=== PATIENT | male | born 1955 | race Two or more races ===

== ENCOUNTER → 2017-10-06 | Outpatient (CLI) | payer BC ==
--- NOTE | 2017-10-06 13:30 | Diagnostic Imaging Report ---
PROCEDURE:HIP LEFT 2-3 VW (+/- PELVIS) COMPARISON:None. INDICATIONS:LEFT HIP PAIN FINDINGS: BONES:There are moderate degenerative changes of the hip with joint space narrowing, subchondral sclerosis, and osteophytes of the acetabulum and femoral head. There is no evidence of fracture or dislocation. Visualized pubic rami are intact. SOFT TISSUES:Negative. OTHER:Negative. CONCLUSION: Moderate degenerative changes of the left hip. Dictated by: Puneet Self M.D. on 10/06/2017 at 13:40 Electronically approved by: Puneet Self M.D. on 10/06/2017 at 13:40
== END ==
LOC: RAD 12:32
DX: M25.552 Pain in left hip (principal); M79.662 Pain in left lower leg
CPT/HCPCS: 93971

== ENCOUNTER 2018-09-15 12:07 | Observation (INO) | payer BC ==
[~2018-09-15] VITALS: Ht 172.7 cm; Wt 128.6 kg
--- OUTSIDE RECORDS SUMMARY | 2018-09-15 12:09 | XMS REPORT ---
Author Author [facility] Address Unknown Phone Unavailable Care Team Providers Care Title Clerk Automobile Name Role Phone SABRINA CLEMENTE Unavailable Unavailable Problems This patient has no known problems. Allergies, Adverse Reactions, Alerts This patient has no known allergies or adverse reactions. Medications This patient has no known medications. Results Test Description Test Time Test Comments Text Results Atomic Results Result Comments HIP LEFT 2-3 VW (+/- PELVIS) [place] [address] Patient Name: VIRIDIANA MONTES MR #: [id number] : 1955 Age/Sex: 62/M Req #: [id number] [facility] Physician: Ordered by: SABRINA CLEMENTE MD Report #: [id number] Location: [facility] Room/Bed: Procedure: [id number] DX/HIP LEFT 2-3 VW (+/- PELVIS) Exam Date: Exam Time: REPORT STATUS: Signed PROCEDURE: HIP LEFT 2-3 VW (+/- PELVIS) COMPARISON: None. INDICATIONS: LEFT HIP PAIN FINDINGS: BONES: There are moderate degenerative changes of the hip with joint space narrowing, subchondral sclerosis, and osteophytes of the acetabulum and femoral head. There is no evidence of fracture or dislocation. Visualized pubic rami are intact. SOFT TISSUES: Negative. OTHER: Negative. CONCLUSION: Moderate degenerative changes of the left hip. Dictated by: Merlene Self M.D. on 10/06/2017 at 13:40 Electronically approved by: Merlene Self M.D. on 10/06/2017 at 13:40 Dictated By: MERLENE SELF MD [id number] Transcribed By: YASMEEN on 10/06/17 1340 COPY TO: SABRINA CLEMENTE MD
[2018-09-15] MEDS ORDERED: ASPIRIN 81 MG CHEW TAB PO ONE (12:45)
[2018-09-15 13:14] LABS: BASOPHILS % 0.4 % (0.0-1.0); EOSINOPHILS # (AUTO) 0.1 (0.0-0.4); EOSINOPHILS % 0.8 % (0.0-6.0); HEMATOCRIT 50.2 % (38.2-49.6); HEMOGLOBIN 16.7 g/dL (14.0-18.0); LYMPHOCYTES # (AUTO) 0.9 (1.0-3.2); LYMPHOCYTES % 8.6 % (18.0-39.1); MEAN CORPUSCULAR HEMOGLOBIN 31.1 pg (28-32); MEAN CORPUSCULAR HGB CONC 33.3 g/dL (31-35); MEAN CORPUSCULAR VOLUME 93.5 fL (81-99); MONOCYTES # (AUTO) 0.7 (0.2-0.8); MONOCYTES % 6.8 % (4.4-11.3); NEUTROPHILS # (AUTO) 8.3 (2.1-6.9); PLATELET COUNT 244 x10e3/uL (140-360); RED BLOOD COUNT 5.37 x10e6/uL (4.3-5.7); RED CELL DISTRIBUTION WIDTH 12.3 % (11.7-14.4)
[2018-09-15 13:16] LABS: INR 0.89; PROTHROMBIN TIME 12.9 seconds (11.9-14.5)
[2018-09-15 13:17] LABS: PARTIAL THROMBOPLASTIN TIME 28.9 seconds (23.8-35.5)
[2018-09-15 13:28] LABS: ALANINE AMINOTRANSFERASE 39 IU/L (0-55); ALBUMIN/GLOBULIN RATIO 1.3 (0.8-2.0); ALKALINE PHOSPHATASE 71 IU/L (40-150); ANION GAP 14.3 mmol/L (8-16); BLOOD UREA NITROGEN 20 mg/dL (7-26); BUN/CREATININE RATIO 18 (6-25); CALCIUM 9.7 mg/dL (8.4-10.2); CARBON DIOXIDE 26 mmol/L (22-29); CHLORIDE 100 mmol/L (98-107); CREATINE KINASE 563 IU/L (30-200); EST GLOMERULAR FILTRATION RATE > 60 ML/MIN (60-); GLUCOSE 100 mg/dL (74-118); POTASSIUM 4.3 mmol/L (3.5-5.1); SODIUM 136 mmol/L (136-145)
--- NOTE | 2018-09-15 14:59 | Diagnostic Imaging Report ---
EXAMINATION: CHEST 2 VIEWS INDICATION: Chest pain. COMPARISON: None FINDINGS: Limited lateral radiograph secondary to motion. TUBES and LINES: None. LUNGS: Lungs are well inflated. Lungs are clear. There is no evidence of pneumonia or pulmonary edema. PLEURA: No pleural effusion or pneumothorax. HEART AND MEDIASTINUM: Enlarged cardiomediastinal silhouette. BONES AND SOFT TISSUES: No acute osseous lesion. Soft tissues are unremarkable. UPPER ABDOMEN: No free air under the diaphragm. IMPRESSION: Enlarged cardiomediastinal silhouette which could reflect cardiomegaly or prominent pericardial fat. No evidence of pulmonary edema. Signed by: Dr. Magdaleno Wu MD on 09/15/2018 2:55 PM
[2018-09-15] MEDS ORDERED: ENOXAPARIN SODIUM INJ 100 MG/ML SYR SC SCH (15:30)
[2018-09-15] MEDS ORDERED: ONDANSETRON HCL INJ 2MG/ML 2ML 2 MG/ML VIAL IV PRN (15:45)
[2018-09-15] MEDS ORDERED: SODIUM CHLORIDE FLUSH 10 ML SYR INJ PRN (15:45)
[2018-09-15] MEDS: ENOXAPARIN SODIUM INJ 100 MG/ML SYR SC SCH (15:58)
[2018-09-15] MEDS: FAMOTIDINE 20 MG TAB PO SCH (15:58)
[2018-09-15] MEDS: SODIUM CHLORIDE 0.9% 1000ML 1,000 ML IV SCH (15:58)
[2018-09-15] MEDS ORDERED: TAMSULOSIN HCL0.4 MG (16:19)
[2018-09-15] MEDS ORDERED: LOSARTAN POTASS50 MG (16:19)
[2018-09-15] MEDS ORDERED: BYSTOLIC10 MG (16:19)
[2018-09-15] MEDS ORDERED: VIAGRA100 MG (16:19)
[2018-09-15] MEDS ORDERED: NON-FORMULARY MEDICATION (Losartan Potassium 50 MG) SCH (17:00)
[2018-09-15] MEDS ORDERED: LOSARTAN POTASSIUM 25 MG TAB PO SCH (17:00)
[2018-09-15] MEDS: NITROGLYCERIN 2% OINT 1 GM PKT TOP SCH (17:46)
[2018-09-15 17:56] VITALS: BP 152/84
[2018-09-15 17:57] VITALS: BP 152/84
[2018-09-15 18:07] VITALS: BP 152/84
--- NOTE | 2018-09-15 18:16 | NUR ---
Received patient from ER and initial assessment complete. Patient A/O X3, no signs of distress at this time. Respirations even on room air. No complaint of chest pain at this time. Last BM this morning, bowel sounds present. Left AC 20 gauge IV with NS @ 100MLS/HR. BLE edema 1+ non-pitting. Patient is ambulatory. Tele #15 running A-fib at this time. Call light in reach, wheels locked, bed in lowest position, side rails up x2, will continue to monitor.
[2018-09-15 20:00] VITALS: BP 138/75
[2018-09-15 20:06] VITALS: BP 138/75
[2018-09-15 20:43] LABS: CREATINE KINASE MB 1.6 ng/mL (0-5.0)
[2018-09-16] VITALS (7 sets, daily range): BP systolic 106–132; BP diastolic 57–77
[2018-09-16] MEDS: NITROGLYCERIN 2% OINT 1 GM PKT TOP SCH ×4 (00:34→17:30)
[2018-09-16] MEDS: SODIUM CHLORIDE 0.9% 1000ML 1,000 ML IV SCH ×3 (02:59→21:56)
[2018-09-16 04:55] LABS: BASOPHILS % 0.5 % (0.0-1.0); EOSINOPHILS # (AUTO) 0.2 (0.0-0.4); EOSINOPHILS % 2.2 % (0.0-6.0); HEMOGLOBIN 15.3 g/dL (14.0-18.0); LYMPHOCYTES # (AUTO) 1.1 (1.0-3.2); LYMPHOCYTES % 14.5 % (18.0-39.1); MEAN CORPUSCULAR HEMOGLOBIN 31.5 pg (28-32); MEAN CORPUSCULAR VOLUME 92.6 fL (81-99); MONOCYTES # (AUTO) 0.7 (0.2-0.8); MONOCYTES % 8.9 % (4.4-11.3); NEUTROPHILS # (AUTO) 5.6 (2.1-6.9); NEUTROPHILS % 73.5 % (38.7-80.0); PLATELET COUNT 203 x10e3/uL (140-360); RED BLOOD COUNT 4.86 x10e6/uL (4.3-5.7); RED CELL DISTRIBUTION WIDTH 12.2 % (11.7-14.4)
[2018-09-16 05:15] LABS: ANION GAP 11.9 mmol/L (8-16); BLOOD UREA NITROGEN 19 mg/dL (7-26); BUN/CREATININE RATIO 18 (6-25); CALCIUM 8.6 mg/dL (8.4-10.2); CARBON DIOXIDE 22 mmol/L (22-29); CHLORIDE 105 mmol/L (98-107); CHOL/HDL RATIO 3.5 (3.9-4.7); CHOLESTEROL 142 MD/DL (0-199); CREATININE, SERUM 1.07 mg/dL (0.72-1.25); EST GLOMERULAR FILTRATION RATE > 60 ML/MIN (60-); GLUCOSE 96 mg/dL (74-118); HDL CHOLESTEROL 41 MG/DL (40-60); LDL CHOLESTEROL 82 MG/DL (60-130); POTASSIUM 3.9 mmol/L (3.5-5.1); SODIUM 135 mmol/L (136-145); TRIGLYCERIDES 96 MG/DL (0-149)
[2018-09-16 05:48] LABS: CREATINE KINASE MB 1.1 ng/mL (0-5.0)
[2018-09-16] MEDS: ENOXAPARIN SODIUM INJ 100 MG/ML SYR SC SCH (06:40)
[2018-09-16] MEDS: FAMOTIDINE 20 MG TAB PO SCH ×2 (08:30→17:30)
[2018-09-16] MEDS: TAMSULOSIN HCL 0.4 MG CAP PO SCH (10:00)
[2018-09-16] MEDS: LOSARTAN POTASSIUM 25 MG TAB PO SCH ×2 (10:00→20:05)
[2018-09-16] MEDS: NEBIVOLOL 10 MG TAB PO SCH (10:00)
--- NOTE | 2018-09-16 14:31 | NUR ---
CASE MANAGEMENT INITIAL ASSESSMENT Aircraft Pneudraulics Repairer to bedside to discuss plan of care with patient/family. CM/SW role and care transitions discussed. Anticipated discharge plan discussed along with duration of care. CM discussed patients right to make decisions in care. CM/SW work hours given. Patient lives: PATIENT LIVES IN [address] HOME [place] [address] Admit/Transfer: ED POA/Emergency contact: SILVIO MONTES [phone] Current/Previous Home Health: NONE PCP/Follow-up Care: DR. SABRINA CLEMENTE Current/Previous DME: NONE AT THIS TIME Other Services: NONE Employment Status: EMPLOYED Areas of Concerns: NONE AT THIS TIME Referral Needs: NONE Education Needs: NONE IMM/WEBER given and signed (if applicable): N/A Goal for discharge: DISCHARGE HOME INDEPENDENT WITH NO NEEDS CM left business card at the bedside with contact information. Name and number was also written on the patients whiteboard. Patient verbalized understanding of discussion. CM will follow-up with ongoing discharge and transition of care needs.
[2018-09-16] MEDS: RIVAROXABAN 20 MG TABLET PO SCH (17:30)
--- NOTE | 2018-09-16 17:31 | NUR ---
TYRONE HANDOUT REVIEWED AND GIVEN TO PT, XALRELTO HANDOUT REVIEWED AND GIVEN TO PT, PT AWARE OF NPO STATUS AFTER MIDNIGHT,
--- NOTE | 2018-09-16 19:14 | NUR ---
WALKING ROUNDS PERFORMED, RECEIVED PT LAYING SEMI FOWLERS IN BED, AAOX3, RR EVEN AND NON-LABORED, ON RA. NO S/SX OF DISTRESS NOTED. LEFT PT LAYING SEMI FOWLERS IN BED, BED IN LOW LOCKED POSITION, SIDE RAILS UPX2, CALL LIGHT AND PHONE WITHIN REACH.
[2018-09-16] MEDS: ACETAMINOPHEN 325 MG TAB PO PRN (20:05)
[2018-09-17] VITALS (19 sets, daily range): BP systolic 107–165; BP diastolic 59–100
[2018-09-17] MEDS: NITROGLYCERIN 2% OINT 1 GM PKT TOP SCH ×4 (01:05→18:20)
[2018-09-17] MEDS: ACETAMINOPHEN 325 MG TAB PO PRN ×2 (01:09→20:22)
--- NOTE | 2018-09-17 02:31 | Consultation ---
DATE OF CONSULTATION: September 16, 2018 CARDIOLOGY CONSULT NOTE REASON FOR CONSULT: AFib with RVR. CHIEF COMPLAINT: Palpitations, weakness, and shortness of breath. HPI: Patient is a 63-year-old man with history of hypertension and hyperlipidemia, who presented with 1 day worth of palpitation, weakness, and shortness of breath, found to be in AFib with RVR. He has no previous diagnosis of atrial fibrillation; however, he said when he was at the [employer] long term about 1-1/2 years ago he had a similar episode that lasted several hours. He did not seek medical care at that time. Denies any previous chest pain or heart failure symptoms. Denies history of WA or CAD. PAST MEDICAL HISTORY 1. Hypertension. 2. Hyperlipidemia. SOCIAL HISTORY: Does not smoke, drink, or abuse drugs. FAMILY HISTORY: Father with history of atrial fibrillation and coronary artery disease. No family history of sudden cardiac . REVIEW OF SYSTEMS: As per HPI, otherwise negative. OUTPATIENT MEDICATIONS: Reviewed. PHYSICAL EXAMINATION VITAL SIGNS: Temperature 97.6, pulse 82, respiratory rate 20, blood pressure 117/64, and satting 98% on room air. GENERAL: Obese man, no acute distress, well developed, well nourished. CARDIOVASCULAR: Irregular rate and rhythm. No murmurs, rubs, or gallops. LUNGS: Clear to auscultation bilaterally. ABDOMEN: Soft, nontender, and nondistended. NEURO AND PSYCH: Alert and oriented to person, place, and time. Normal affect. LABORATORY DATA: Reviewed. IMAGING DATA: Reviewed. TELEMETRY DATA: Reviewed. Shows AFib with RVR, now rate controlled. Echocardiogram reviewed, LV ejection fraction is preserved. No major valvular lesions. ASSESSMENT 1. Atrial fibrillation with rapid ventricular response. 2. Hypertension. 3. Hyperlipidemia. PLAN: Patient has been ruled out for acute WA with serial troponins. LV ejection fraction is preserved. The patient is still very symptomatic from atrial fibrillation, feels weak and tired and short of breath despite achieving rate control. As this is new onset atrial fibrillation, will plan for TYRONE and attempt cardioversion tomorrow. The patient is already on anticoagulation. Will switch from Lovenox to Xarelto. Thank you for this consult. We will continue to follow. Job#: [id number] CF
--- NOTE | 2018-09-17 06:18 | NUR ---
AFTER PT RECEIVED SHOWER, APPLIED TELEMETRY.
[2018-09-17] MEDS: FAMOTIDINE 20 MG TAB PO SCH ×2 (07:30→18:20)
[2018-09-17] MEDS: SODIUM CHLORIDE 0.9% 1000ML 1,000 ML IV SCH ×2 (08:05→18:20)
[2018-09-17] MEDS: LOSARTAN POTASSIUM 25 MG TAB PO SCH ×2 (09:00→20:22)
--- NOTE | 2018-09-17 11:20 | NUR ---
PATIENT CONDITION STABLE WITHOUT DISTRESS, HE DENIES CHEST PAIN. HE REMAINS ON NPO STATUS FOR TYRONE THIS AFTERNOON. CALL LIGHT WITHIN EASY REACH, INSTRUCTED TO CALL FOR ASSISTANCE NEEDED.
[2018-09-17] MEDS ORDERED: SODIUM CHLORIDE 0.9% 1000ML 1,000 ML ONE (15:31)
[2018-09-17] MEDS ORDERED: BENZOCAINE 20% SPR 60 ML CAN ONE (15:31)
--- NOTE | 2018-09-17 15:44 | NUR ---
PATIENT IS BEEN WHEELED OFF THE UNIT PER BED TO SALES LEAD GENERATOR FOR TYRONE. CONDITION STABLE WITHOUT ACUTE DISTRESS.
--- NOTE | 2018-09-17 16:32 | NUR ---
1632 Received pt from [facility] with Iftikhar Adam and Anesthesia at bedside. Identifierx2 pt had TYRONE with Mac sedation and cardioversion afib. pattern with recovery rhythm SR. Pt received 100 Fentanyl and 2 versed and 100 Propofol per anesthesia. Sob on 4lNC Iv at kvo per Anesthesia request. No s/s infiltration.Abd distended denies necessity to defecate or urinate. RASS -2 . Anesthesia at bedside stimulates pt and suggests to followup with sleep study. Pt awakes to respond verbally. Pt does have cough reflex and is NPO till minimal 1830pm Called report to floor nurse Edgardo VICENTE
--- NOTE | 2018-09-17 17:45 | NUR ---
Pt transferred to floor care Jules Shrestha.Rm 102. Awake back to baseline orientation. Laly score 10 ,96% Room air . Rass score 0. With one hour monitoring in laborer drying department mikael rm #10 post handoff from Jair Buitrago Cathlab/Mac sedation assist nurse. Transfer with Tel box on place and NSR. Vs stable Tele room notified of baseline stability and back in room with nurse JULES Shrestha in charge of care.Iv at KVO no s/s infiltration. Call light at bedside and patient informed NPO till 1830pm.Side rail up. Denies c/o Cp or SOB.
--- NOTE | 2018-09-17 17:56 | NUR ---
JULES Llanos called at [phone] to request for cardiac meal tray. Order put in per RN request.
[2018-09-17] MEDS: NEBIVOLOL 10 MG TAB PO SCH (18:19)
[2018-09-17] MEDS: TAMSULOSIN HCL 0.4 MG CAP PO SCH (18:20)
[2018-09-17] MEDS: RIVAROXABAN 20 MG TABLET PO SCH (18:20)
--- NOTE | 2018-09-17 18:20 | NUR ---
PATIENT BACK ON THE UNIT FROM PROCEDURE AT 1750; NO RESPIRATORY DISTRESS, HE DENIES PAIN. ROUND ABRASION OBSERVED TO THE CHEST AND THE POSTERIOR UPPER BACK FROM THE CARDIOVERSION. BLOOD PRESSURE 140/79, HEART RATE 80, OXYGEN SATURATION 95% ON ROOM AIR, RESPIRATORY RATE 17 AND PATIENT IS NOW EATING HIS DINNER WITHOUT PROBLEMS.
[2018-09-17] MEDS ORDERED: FENTANYL CITRATE/PF 100MCG/2 ML INJ ONE (18:36)
[2018-09-17] MEDS ORDERED: MIDAZOLAM HCL 2 MG/2 ML VIAL ONE (18:36)
[2018-09-17] MEDS ORDERED: LIDOCAINE HCL 2% LOCAL INJ 5 ML SDV VIAL INJ ONE (19:50)
[2018-09-17] MEDS ORDERED: PROPOFOL IV EMULSION 10 MG/ML 20 ML VIAL ONE (19:50)
--- NOTE | 2018-09-17 20:20 | Progress Note ---
DATE: September 17, 2018 CARDIOLOGY PROGRESS NOTE SUBJECTIVE: Had the cardioversion performed by me today. Doing well known. OBJECTIVE VITAL SIGNS: Temperature 98.9, pulse 71, respiratory rate 20, blood pressure 122/59, satting 98% on room air. GENERAL: Obese man, in no acute distress. VASCULAR: Regular rate and rhythm. No murmurs, rubs or gallops. LUNGS: Clear to auscultation bilaterally. ABDOMEN: Soft, nontender, nondistended. NEURO/PSYCH: Alert and oriented to person, place, and time. Normal affect. LABORATORY DATA: Reviewed. IMAGING DATA: Reviewed. TELEMETRY DATA: Reviewed. Now back in sinus rhythm. ASSESSMENT 1. Atrial fibrillation with rapid ventricular response now status post cardioversion. 2. Hypertension. 3. Hyperlipidemia. PLAN: The patient had TYRONE cardioversion today, now back in sinus rhythm. Continue current cardiovascular medications. As the patient is asymptomatic with atrial fibrillation, will attempt to maintain sinus rhythm. Continue nebivolol. Will up-titrate dose as tolerated. Thank you for this consult. Will continue to follow. Job#: [id number] [employer]
[2018-09-18] VITALS: BP 126/75
[2018-09-18] MEDS: NITROGLYCERIN 2% OINT 1 GM PKT TOP SCH ×3 (00:26→12:00)
[2018-09-18] MEDS: ACETAMINOPHEN 325 MG TAB PO PRN ×2 (00:26→05:18)
[2018-09-18 04:00] VITALS: BP 140/83
[2018-09-18] MEDS: SODIUM CHLORIDE 0.9% 1000ML 1,000 ML IV SCH (04:28)
--- NOTE | 2018-09-18 07:30 | NUR ---
Rcvd patient in report this am. Patient is asleep in bed at this time. No s/s of distress noted
[2018-09-18 07:54] VITALS: BP 147/72
[2018-09-18] MEDS: TAMSULOSIN HCL 0.4 MG CAP PO SCH (08:35)
[2018-09-18] MEDS: FAMOTIDINE 20 MG TAB PO SCH (08:35)
[2018-09-18] MEDS: LOSARTAN POTASSIUM 25 MG TAB PO SCH (08:35)
[2018-09-18 09:00] VITALS: BP 147/72
[2018-09-18] MEDS ORDERED: NEBIVOLOL 10 MG TAB PO SCH (09:00)
--- NOTE | 2018-09-18 09:49 | NUR ---
Patient is AAOx3. Patient lung viera clear to auscultation. Bowel sounds present x4. No edema noted. No c/o chest pain. Noted to have a burn avery on his chest from the leads during his procedure. No drainage noted. No c/o pain to it. Patient ambulates on his own.
[2018-09-18] MEDS ORDERED: XARELTO20 MG PO (11:29)
[2018-09-18] MEDS ORDERED: BYSTOLIC10 MG PO (11:29)
--- NOTE | 2018-09-18 11:52 | NUR ---
Removed IV from left AC. Pressure dressing applied.
[2018-09-18] MEDS: RIVAROXABAN 20 MG TABLET PO SCH (12:14)
--- NOTE | 2018-09-18 12:27 | NUR ---
Patient discharged from facility to home. Patient assisted out via staff. Reviewed all discharge paperwork, follow up appts, and RX's given. NO s/s of distress noted
[2018-09-18 12:39] VITALS: BP 145/87
--- NOTE | 2018-09-18 12:41 | NUR ---
CM SPOKE TO BEDSIDE RN REGARDING PATIENT DISCHARGE PLAN AND NEEDS. PATIENT NEEDS XARELTO COUPON. CM PRINTED VALID COUPON FOR XARELTO AND PROVIDED XARELTO COUPON TO RN, WHO GAVE TO PATIENT DURING DISCHARGE INSTRUCTION. PATIENT NOW CLEAR TO DISCHARGE HOME FROM CASE MANAGEMENT STANDPOINT.
== END 2018-09-18 12:27 | disposition home or self-care (01) ==
LOC: ER 12:07 → ERHOLD 15:51 → MED/SURG 17:21
DX: I48.91 Unspecified atrial fibrillation (principal); R07.9 Chest pain, unspecified; I10 Essential (primary) hypertension; E66.01 Morbid (severe) obesity due to excess calories; Z68.41 Body mass index [BMI] 40.0-44.9, adult; N40.1 Benign prostatic hyperplasia with lower urinary tract symptoms; E78.5 Hyperlipidemia, unspecified; Z82.49 Family history of ischemic heart disease and other diseases of the circulatory system
CPT/HCPCS: 36415 ×2; 71046; 80048; 80053; 80061; 82550 ×2; 82553 ×2; 83880; 84443; 84484 ×2; 85025 ×2; 85379; 85610; 85730; 93005; 93306; 93312; 93320; 93325; 99284; G0378 ×4; J1650 ×2; J2001; J2250; J2704; J7030 ×4

== ENCOUNTER → 2018-11-05 | Day surgery (SDC) | payer BC ==
[2018-11-04 11:20] LABS: BASOPHILS % 0.4 % (0.0-1.0); EOSINOPHILS # (AUTO) 0.1 (0.0-0.4); EOSINOPHILS % 1.3 % (0.0-6.0); HEMATOCRIT 46.9 % (38.2-49.6); HEMOGLOBIN 15.6 g/dL (14.0-18.0); LYMPHOCYTES # (AUTO) 1.1 (1.0-3.2); LYMPHOCYTES % 13.5 % (18.0-39.1); MEAN CORPUSCULAR HEMOGLOBIN 31.1 pg (28-32); MEAN CORPUSCULAR HGB CONC 33.3 g/dL (31-35); MEAN CORPUSCULAR VOLUME 93.6 fL (81-99); MONOCYTES # (AUTO) 0.7 (0.2-0.8); MONOCYTES % 9.2 % (4.4-11.3); NEUTROPHILS # (AUTO) 5.9 (2.1-6.9); NEUTROPHILS % 75.1 % (38.7-80.0); PLATELET COUNT 209 x10e3/uL (140-360); RED BLOOD COUNT 5.01 x10e6/uL (4.3-5.7); RED CELL DISTRIBUTION WIDTH 13.1 % (11.7-14.4)
[2018-11-04 11:38] LABS: ALANINE AMINOTRANSFERASE 26 IU/L (0-55); ALBUMIN 3.8 g/dL (3.5-5.0); ALBUMIN/GLOBULIN RATIO 1.3 (0.8-2.0); ALKALINE PHOSPHATASE 66 IU/L (40-150); ANION GAP 10.9 mmol/L (8-16); BLOOD UREA NITROGEN 19 mg/dL (7-26); BUN/CREATININE RATIO 23 (6-25); CALCIUM 9.3 mg/dL (8.4-10.2); CARBON DIOXIDE 23 mmol/L (22-29); CHLORIDE 106 mmol/L (98-107); CREATININE, SERUM 0.84 mg/dL (0.72-1.25); EST GLOMERULAR FILTRATION RATE > 60 ML/MIN (60-); GLUCOSE 103 mg/dL (74-118); POTASSIUM 3.9 mmol/L (3.5-5.1); SODIUM 136 mmol/L (136-145)
[~2018-11-05] VITALS: Ht 172.7 cm; Wt 131.5 kg
[2018-11-05] VITALS (8 sets, daily range): BP systolic 127–149; BP diastolic 85–102
[~2018-11-05] MED LIST: BYSTOLIC10 MG; BYSTOLIC10 MG PO; FENTANYL CITRATE/PF 100MCG/2 ML INJ ONE; HEPARIN SOD (PORCINE) 1000 UNIT/ML 30ML ONE; HEPARIN SOD/SOD CHLORIDE 1,000 ML ONE; HYDRALAZINE HCL 20 MG/ML VIAL ONE; IOPAMIDOL 370 MG/ML 200 ML INFUS..BTL INJ ONE; LIDOCAINE HCL 2% LOCAL 20 ML VIAL ONE; LOSARTAN POTASS50 MG; MIDAZOLAM HCL 2 MG/2 ML VIAL ONE; NITROGLYCERIN/D5W 200 MCG/ML 250 ML ONE; SODIUM CHLORIDE 0.9% 1000ML 1,000 ML ONE; TAMSULOSIN HCL0.4 MG; VERAPAMIL HCL 2.5 MG/ML 2 ML VIAL ONE; VIAGRA100 MG; XARELTO20 MG PO
--- NOTE | 2018-11-05 08:38 | NUR ---
Pt transferred to CCL holding room [address] Piedra aware of 149/102 BP. Hydralazine 10mg IV ordered. Daughter at bedside. Dr Piedra in to speak with patient and daughter. No further questions at this time. TR band to R wrist with 12ml air. No s/sx bleeding/hematoma noted. No c/o pain/discomfort voiced. Bed in low postion, SR upx2, call light in reach. Will continue to monitor.
--- NOTE | 2018-11-05 08:42 | NUR ---
Hydralazine 10mg given IV for BP as ordered. Will continue to monitor
--- NOTE | 2018-11-05 08:45 | NUR ---
BP 129/89 after hydralazine. Will continue to monitor.
--- NOTE | 2018-11-05 09:30 | NUR ---
0930 Received pt in #9 slab tripper recovery Identifierx2 [facility] Dr Piedra Lt arm iv w/o s/s infiltration 100cc NS left Family at bedside daughter Pamela . Received report from Garfield Buitrago for TC post completion TR band titration Site w/o oozing radial pulse adequate 3cc out of 12cc balloon. [facility] findings given per Dc instructions explained to family and pt with adequate understanding copies to family ds/rn
--- NOTE | 2018-11-05 10:15 | NUR ---
1015 TR Band titration completed No s/s bleeding or hematoma. Rt Tr band site. sterile 2x2 with Tegaderm and Coban. Rt radial pulse adequate Left hand IV out, Coban gauze dressing no s/s infiltration Home instructions were reinforced aware of followup care and has copies of dc papers Discharged via private car. Daughter is racing driver. Escorted per [facility] FINISHER CARD TENDER Sarahi w/o co CP or SOB per w/c. ds/rn
--- NOTE | 2018-11-05 16:25 | Operative Report ---
DATE OF PROCEDURE: 11/05/2018 SURGEON: Joshua Piedra MD INDICATIONS FOR PROCEDURE: Exertional shortness of breath and positive stress test. PREPROCEDURE ASSESSMENT: The patient's medical history, social history, prior experience with anesthesia was reviewed prior to the procedure. The patient was deemed to be an appropriate candidate for moderate sedation. The risks, the benefits, alternatives to the procedure were explained to the patient prior to the procedure. An informed consent was obtained and is documented in the medical record. MEDICATIONS: Please see nursing notes for medications administered during the procedure. PROCEDURES PERFORMED: 1. Coronary angiography via right radial approach. 2. Left heart catheterization. PROCEDURE DETAILS: The patient was brought to the cardiac catheterization laboratory in a fasting state. Right wrist was prepped and draped in a sterile fashion. A 6-Georgian Slender sheath was inserted into the right radial artery using modified Seldinger technique. Coronary angiography and left heart catheterization were performed using Lissa right radial catheter. All catheters were exchanged over a wire. Sheath was removed and hemostasis was achieved using TR band inflated to 12 atmospheres. Procedure ended without any complications. ESTIMATED BLOOD LOSS: 20 mL. SIGNIFICANT FINDINGS: Mild plaquing of the left anterior descending artery. Left dominant coronary system. Otherwise, no significant obstructive coronary artery disease. Left ventricular end-diastolic pressure was noted to be 24 mmHg. RECOMMENDATIONS: 1. Continue optimal medical therapy and risk factor control. 2. Follow up in clinic two weeks post discharge. Joshua Piedra MD KVP/MODL /[id number]
== END | disposition home or self-care (01) ==
LOC: CATH LAB 06:11
PROVIDERS: ATTEND Internal Medicine
DX: I25.118 Atherosclerotic heart disease of native coronary artery with other forms of angina pectoris (principal); I48.91 Unspecified atrial fibrillation; I10 Essential (primary) hypertension; Z79.02 Long term (current) use of antithrombotics/antiplatelets; Z68.41 Body mass index [BMI] 40.0-44.9, adult
CPT/HCPCS: 36415; 80053; 85025; 93458; C1887; J0360; J1644; J2001; J2250; J7030; Q9967